=== PATIENT | male | born 1960 | race Caucasian/White ===

== ENCOUNTER 2023-08-28 06:09 | Day surgery (SDC) | payer OTHER ==
[2023-08-28] MEDS: Lactated Ringers 1,000 ML IV SCH (06:16)
[2023-08-28 06:28] VITALS: RESP 16
[2023-08-28] MEDS ORDERED: DIPRIVAN 200 MG/20 ML IV ONE (07:29)
[2023-08-28 08:05] VITALS: BP 115/85; PULSE 66; TEMP 96.7; O2SAT 97
--- NOTE | 2023-08-28 13:02 | OP ---
SURGERY DATE/TIME: 08/28/2023 5315 PREOPERATIVE DIAGNOSIS: Screening exam. POSTOPERATIVE DIAGNOSIS: Normal colon. PROCEDURE: Colonoscopy. SURGEON: Dr. Carter. ANESTHESIA: Medications given by anesthesia department. HISTORY: The patient is a 63-year-old white male patient presenting now for screening colonoscopy. He reports this is his first examination. He is having no problems. The patient was appraised of the risks of the procedure including the risk of perforation, phlebitis, untoward reaction to medication, bleeding and missed lesions. The patient verbalized his understanding and desired to have the procedure performed. DESCRIPTION OF PROCEDURE: The patient was given the medications by the anesthesia department. He had continuous pulse oximetry, ECG monitoring and intermittent blood pressure monitoring during the examination. He was placed in the left lateral decubitus position. Digital rectal examination was performed and revealed normal anal sphincter tone, no masses and a normal prostate. The flexible Olympus pediatric colonoscope was used to intubate the rectum. A view of the colon was developed sequentially to the cecum. Upon insertion and withdrawal, including a retroflex view in the rectum, no mucosal lesions were encountered. The scope was removed from the patient who tolerated the procedure well and was sent back to OP recovery in good condition. The prep was noted to be fair to good.
== END 2023-08-28 08:15 | disposition home or self-care (01) ==
LOC: SDC 06:09
PROVIDERS: ATTEND Family Medicine
DX: Z12.11 Encounter for screening for malignant neoplasm of colon (principal)
CPT/HCPCS: J2704